=== PATIENT | male | born 1970 | race African-American/Black ===

== ENCOUNTER 2018-11-26 13:22 | Emergency (ER) | payer OTHER ==
[2018-11-26] MEDS ORDERED: Cyclobenzaprine 10 MG Tab PO ONE (14:16)
[2018-11-26] MEDS ORDERED: Ketorolac 60 MG/2 ML SDV IM ONE (14:17)
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
== END 2018-11-26 15:28 | disposition home or self-care (01) ==
LOC: JP.ED 13:22
DX: S29.9XXA Unspecified injury of thorax, initial encounter (principal); V87.7XXA Person injured in collision between other specified motor vehicles (traffic), initial encounter
CPT/HCPCS: 72072; 96372; 99283; A9270; J1885